=== PATIENT | male | born 1950 | race African-American/Black ===

== ENCOUNTER 2017-09-09 12:21 | Emergency (ER) | payer MEDICARE, MEDICAID ==
[~2017-09-09] VITALS: Ht 177.8 cm; Wt 75.0 kg
[2017-09-09 12:24] VITALS: BP 145/116
== END 2017-09-09 16:02 | disposition left against medical advice (07) ==
LOC: ER 15:05
DX: Z53.21 Procedure and treatment not carried out due to patient leaving prior to being seen by health care provider (principal)

== ENCOUNTER 2024-03-27 17:17 | Emergency (ER) | payer MEDICARE, MEDICAID ==
[~2024-03-27] VITALS: Ht 170.2 cm; Wt 75.0 kg
[2024-03-27 17:20] VITALS: O2SAT 99
[2024-03-27] MEDS: MORPHINE SULFATE 4 MG/ML INJ (FOR IV/IM USE) IV STA (18:18)
[2024-03-27] MEDS: ONDANSETRON HCL 4MG/2ML INJ IV STA (18:18)
[2024-03-27 18:30] LABS: BASOPHILS % 0.3 % (0.0-2.0); EOSINOPHILS % 1.5 % (0.0-5.0); HEMATOCRIT. 47.2 % (42.0-52.0); HEMOGLOBIN. 15.6 g/dL (14.0-18.0); LYMPHOCYTES % 22.2 % (20.0-50.0); MEAN CORPUSCULAR HEMOGLOBIN 29.9 pg (28.0-32.0); MEAN CORPUSCULAR HGB CONC 33.1 g/dL (31.0-37.0); MEAN CORPUSCULAR VOLUME 90.5 fL (80.0-94.0); MEAN PLATELET VOLUME 9.5 fl (7.4-10.4); MONOCYTES % 9.6 % (2.0-8.0); NEUTROPHILS % 66.4 % (40.0-76.0); PLATELET 127 x1000/uL (130-400); RED BLOOD CELL COUNT 5.22 mill/uL (4.7-6.1); RED CELL DISTRIBUTION WIDTH 14.8 % (11.6-14.6); WHITE BLOOD COUNT 6.8 x1000/uL (4.5-11.0)
[2024-03-27 18:35] LABS: CHLORIDE 104 mEq/L (98-107); POTASSIUM 3.1 mEq/L (3.5-5.1); SODIUM 141 mEq/L (136-145)
[2024-03-27 18:36] LABS: CARBON DIOXIDE 28 mEq/L (21-32)
[2024-03-27 18:37] LABS: CALCIUM 10.2 mg/dL (8.7-10.4)
[2024-03-27 18:41] LABS: CREATININE 1.2 mg/dL (0.6-1.3); GLUCOSE 90 mg/dL (70-105); UREA NITROGEN BLOOD 21 mg/dL (9-23)
[2024-03-27 18:48] LABS: INR 0.9; PROTHROMBIN TIME 10.3 sec (9.6-11.0)
[2024-03-27] MEDS ORDERED: POTASSIUM CHLORIDE 20MEQ TABLET SR PO ONE (19:00)
[2024-03-27] MEDS ORDERED: KETAMINE HCL 50 MG/ML 10ML IV ONE (19:15)
[2024-03-27] MEDS: POTASSIUM CHLORIDE 20MEQ TABLET SR PO NR (20:05)
[2024-03-27] MEDS: KETAMINE HCL 50 MG/ML 10ML IV NR (20:14)
[2024-03-27] MEDS: ONDANSETRON HCL 4MG/2ML INJ IV ONE (20:14)
[2024-03-27] MEDS ORDERED: NA PHOS,M-B/NA PHOS,DI-BA ENEMA 118ML PR PRN (20:30)
[2024-03-27] MEDS ORDERED: IPRATROPIUM/ALBUTEROL 0.5-3(2.5)MG/3ML NEB HHN PRN (20:30)
[2024-03-27] MEDS ORDERED: ENOXAPARIN 40MG/0.4ML SYR SUBCUT SCH (20:30)
[2024-03-27] MEDS ORDERED: CLONIDINE 0.1MG TABLET PO PRN (20:30)
[2024-03-27] MEDS ORDERED: ACETAMINOPHEN 325MG TABLET PO PRN (20:30)
[2024-03-27] MEDS ORDERED: DOCUSATE SODIUM 100MG CAPSULE PO PRN (20:30)
[2024-03-27] MEDS ORDERED: MAGNESIUM/ALUMINUM HYDROXIDE/SIMETHICONE 30ML UDC PO PRN (20:30)
[2024-03-27] MEDS ORDERED: GUAIFENESIN 200MG/10ML SUGAR FREE UDC PO PRN (20:30)
[2024-03-27] MEDS ORDERED: MORPHINE SULFATE 4 MG/ML INJ (FOR IV/IM USE) IV ONE (20:45)
[2024-03-27] MEDS ORDERED: NALOXONE HCL 0.4MG/ML VIAL IV PRN (20:45)
[2024-03-27 21:20] LABS: PHOSPHORUS 3.3 mg/dL (2.5-4.9)
[2024-03-27] MEDS: ONDANSETRON HCL 4MG/2ML INJ IV PRN (21:20)
[2024-03-27] MEDS: SODIUM CHLORIDE 0.45% 1,000 ML IV SCH (21:20)
[2024-03-27] MEDS: MORPHINE SULFATE 4 MG/ML INJ (FOR IV/IM USE) IV PRN (21:20)
[2024-03-27] MEDS: ENOXAPARIN 40MG/0.4ML SYR SUBCUT SCH (21:20)
[2024-03-27 22:34] VITALS: BP 95/73; PULSE 62; RESP 17; TEMP 37.05852; O2SAT 96
[2024-03-27 22:45] VITALS: TEMP 98.6
[2024-03-27] MEDS: ACETAMINOPHEN 325MG TABLET PO PRN (22:45)
[2024-03-28] MEDS ORDERED: PANTOPRAZOLE 40MG DR TABLET PO SCH (07:50)
== END 2024-03-27 22:57 | disposition short-term general hospital (02) ==
LOC: ER 17:17 → EDBEDREQTM 19:53 → EDBEDREQ 19:53 → ER 22:57
DX: M25.552 Pain in left hip (principal)
CPT/HCPCS: 99285; 96374; 71045; 96375; 80048; 83735; 84100; 85025; 85610; 86850; 86900; 86901; 36415; 73502; 93005; 96376; 96372; 72170; L1830; J1650; J3490; J2405; J2270